=== PATIENT | male | born 1965 | race Caucasian/White ===

== ENCOUNTER → 2017-04-25 | Outpatient (CLI) | payer OTHER ==
[~2017-04-25] MED LIST: ILOTYCIN1 G1 OP
--- NOTE | ~2017-04-25 | US5 ---
[facility] A Service of [facility] RADIOLOGY TEXT RESULTS PATIENT: KRISTA HERNANDEZ LOCATION: [place] : 69 UNIT #: [id number] AGE: [address]: BERNABE LORENZANA MD SEX: M ORDER DR: [id number] [place], [place] [address] [id number] O MR#: [id number] Acc #: [id number] NAME: KRISTA HERNANDEZ : 1965 SEX: M STUDY DATE/TIME: 04/25/2017 9:16 UNIT: CGUS ROOM: STUDY DESCRIPTION: US Abdominal Complete Attending Physician: Bernabe Lorenzana M.D. Referring Physician: Bernabe Lorenzana M.D. Ordering Physician: Bernabe Lorenzana M.D. Primary Care Physician: Bernabe Lorenzana M.D. MEDICAL IMAGING REPORT This report is preliminary unless electronic signature is present EXAM Abdominal ultrasound INDICATION Right flank pain for the past month. PROCEDURE [place]-scale and Doppler imaging right upper quadrant of the abdomen. COMPARISON CT from 01/26/2012 FINDINGS Visualized portions of pancreas unremarkable. Submitted images abdominal aorta and inferior vena cava unremarkable. Common duct measures 5.0 mm. Unremarkable gallbladder. The liver measures 15.9 cm in length and has homogeneous echotexture. Right kidney measures 10.8 cm. Left kidney measures 9.1 cm. No hydronephrosis. Spleen measures 9.4 cm. IMPRESSION Negative abdominal ultrasound. Dictated by... Ridge Sargent M.D. THIS IS AN ELECTRONICALLY VERIFIED REPORT Ridge Sargent M.D. at 04/26/2017 7:12 AM ARMANI/laith TD: 04/25/2017 16:38 JOB #: [id number] MEDICAL IMAGING REPORT [facility] A Service [facility] RADIOLOGY TEXT RESULTS PATIENT: KRISTA HERNANDEZ LOCATION: [facility] : 69 UNIT #: [id number] AGE: [address]: BERNABE LORENZANA MD SEX: M ORDER DR: Page 1 of 1 COPY
== END | disposition home or self-care (01) ==
LOC: CGUS 08:56
DX: R10.9 Unspecified abdominal pain (principal)
CPT/HCPCS: 76700